=== PATIENT | female | born 1950 | race Caucasian/White ===

== ENCOUNTER 2017-02-07 11:29 | Day surgery (SDC) | payer MEDICARE, BC ==
[2017-02-02 12:12] VITALS: BMI 24.0
[~2017-02-07 11:29] MED LIST: DEXAMETHASONE SOD PHOSPHATE 10 MG/ML 1 ML VIAL IV ONE; DEXAMETHASONE SOD PHOSPHATE 4 MG/ML 1 ML VIAL IV ONE; FAMOTIDINE 20 MG/2 ML VIAL IV ONE; HYDROmorphone 1 MG/ML 1 ML SYRINGE IVP PRN; LACTATED RINGERS 1,000 ML IV SCH; MIDAZOLAM 2 MG/2 ML VIAL IV PRN; ONDANSETRON 4 MG/2 ML VIAL IVP ONE
[2017-02-07] MEDS: OXYMETAZOLINE 0.05% NASL SPRAY 15 ML NASAL ONE ×5 (12:40→13:00)
[2017-02-07] MEDS ORDERED: MIDAZOLAM 2 MG/2 ML VIAL ONE (13:17)
[2017-02-07] MEDS ORDERED: SUCCINYLCHOLINE CHLORIDE 100 MG/5 ML SYR IV ONE (13:17)
[2017-02-07] MEDS ORDERED: MEPERIDINE 50 MG/ML SYRINGE ONE (13:17)
[2017-02-07] MEDS ORDERED: HYDROmorphone (PF) 1 MG/ML ONE (13:17)
[2017-02-07] MEDS ORDERED: ETOMIDATE 2 MG/ML 10 ML VIAL ONE (13:17)
[2017-02-07] MEDS ORDERED: LIDOCAINE 1%-EPI 1:100,000 20 ML VIAL SQ ONE (13:39)
--- NOTE | 2017-02-07 14:13 | P.OP ---
Date of Procedure: 02/07/17 Preoperative Diagnosis: Chronic sinusitis Postoperative Diagnosis: Same Procedure(s) Performed: Bilateral endoscopic sinus surgery including bilateral maxillary antrostomy with removal of tissue from the right maxillary sinus, bilateral ethmoidectomy and balloon sinus plasty of the bilateral frontal sinuses Implants: Anesthesia: SHERRIA Surgeon: Colton Nye Estimated Blood Loss (ml): 10 Pathology: other (Sinus contents) Condition: stable Disposition: PACU Indications for Procedure: This is a 67-year-old white female with a remote history of sinus surgery 2002 and generally has done well until about the last 3 months where she is developed some headaches vertigo in the maxillary and frontal areas. She had a computed tomography scan in November of this year and again in December of this year showing some mucosal thickening the maxillary sinuses right. Left as well as a few ethmoid air cells below this did improve by the second CT. Operative Findings: Mucosal thickening in the maxillary and ethmoid sinuses. Frontal sinuses appeared unremarkable Description of Procedure: The patient was brought in the operative suite and placed in a supine position. The patient underwent induction of general anesthesia with oral endotracheal intubation without difficulty. The patient was prepped and draped in usual aseptic fashion with the orbits in the operating field for monitoring throughout the case. CT scan was on the computer screen for procedure also. 1 % lidocaine with 1-100,000 epinephrine was infused submucosally lateral nasal wall bilaterally as well as anterior tips of middle turbinates bilaterally. This was left to work for 7 minutes vasoconstrictive effect. Full 0 endoscopic examination is performed bilaterally. Being on the left the middle turbinate was medialized and good visualization of the maxillary and ethmoid sinuses was noted. The maxillary ostium was patent however was enlarged mildly anteriorly. Good visualization the maxillary sinus mucosa was noted and had only minimal thickening. There were a few residual posterior ethmoid air cells opened with minimal mucosal thickening. The balloon sinus plasty was performed on the left frontal sinus with the entellus light guided system. The sinus was then explored and appeared unremarkable. Attention was then turned to the right where the procedures were followed as they were on the left including medialization the middle turbinate, completion of ethmoidectomy, maxillary antrostomy. Note that the maxillary ostium on the right was patent but relatively smaller than the right have some increased mucosal thickening in the right maxillary sinus compared to the left. Again balloon sinus plasty was performed on the right frontal sinus with entellus light guided system and sinus explored as it was on the left. Once this completed xerogel nasal dressing was placed in the middle meatus bilaterally. The patient was suctioned in oral gastric fashion and was allowed to emerge from general anesthesia well and was extubated in the the operative suite and transferred to postop recovery area in satisfactory condition.
[2017-02-07 14:24] VITALS: TEMP 97.1
[2017-02-07 15:19] VITALS: RESP 16
[2017-02-07 15:43] VITALS: BP 143/76; PULSE 76
== END 2017-02-07 15:49 | disposition home or self-care (01) ==
LOC: OR 11:29
PROVIDERS: ATTEND Otolaryngology
DX: J32.2 Chronic ethmoidal sinusitis (principal); J32.0 Chronic maxillary sinusitis; J45.909 Unspecified asthma, uncomplicated; I10 Essential (primary) hypertension; M19.90 Unspecified osteoarthritis, unspecified site; E78.00 Pure hypercholesterolemia, unspecified; E03.9 Hypothyroidism, unspecified; Z79.2 Long term (current) use of antibiotics; Z79.891 Long term (current) use of opiate analgesic; Z79.52 Long term (current) use of systemic steroids; Z79.899 Other long term (current) drug therapy; Z88.1 Allergy status to other antibiotic agents; Z91.012 Allergy to eggs; Z91.011 Allergy to milk products; Z91.010 Allergy to peanuts; Z91.018 Allergy to other foods; Z91.09 Other allergy status, other than to drugs and biological substances; Z87.891 Personal history of nicotine dependence
CPT/HCPCS: 88305; 31267; 31296; 31255; C1726; J2250; J1100; J2175; J2405; J1170; J0330

== ENCOUNTER → 2017-04-03 | Outpatient (CLI) | payer MEDICARE, BC ==
--- NOTE | 2017-04-06 07:30 | MM ---
Reason for exam: screening (asymptomatic). Last mammogram was performed 1 year ago. History: Patient is postmenopausal and had first child at age 30. Benign left mammotome panel of the left breast, November 22, 2007. Cyst aspiration of the left breast. Took hormonal contraceptives for 6 years beginning at age 19. Took estrogen for 4 years beginning at age 52. Took progesterone for 4 years beginning at age 52. Physical Findings: A clinical breast exam by your physician is recommended on an annual basis and results should be correlated with mammographic findings. MG 3D Screening Mammo W/Cad Bilateral CC and MLO view(s) were taken. Prior study comparison: March 24, 2016, bilateral MG 3d screening mammo w/cad. The breast tissue is heterogeneously dense. This may lower the sensitivity of mammography. Previous mammotome biopsy within the left breast. No significant changes when compared with prior studies. ASSESSMENT: Benign, BI-RAD 2 RECOMMENDATION: Routine screening mammogram of both breasts in 1 year.
== END | disposition home or self-care (01) ==
LOC: RADMAMWWP 10:50
PROVIDERS: ATTEND Family Medicine
DX: Z12.31 Encounter for screening mammogram for malignant neoplasm of breast (principal)
CPT/HCPCS: 77063; G0202

== ENCOUNTER → 2018-04-26 | Outpatient (CLI) | payer MEDICARE, BC ==
--- NOTE | 2018-04-29 10:08 | MM ---
Reason for exam: screening (asymptomatic). Last mammogram was performed 1 year and 1 month ago. History: Patient is postmenopausal and had first child at age 30. Benign left mammotome panel of the left breast, November 22, 2007. Cyst aspiration of the left breast. Took hormonal contraceptives for 6 years beginning at age 19. Took estrogen for 4 years beginning at age 52. Took progesterone for 4 years beginning at age 52. Physical Findings: A clinical breast exam by your physician is recommended on an annual basis and results should be correlated with mammographic findings. MG 3D Screening Mammo W/Cad Bilateral CC and MLO view(s) were taken. Prior study comparison: April 03, 2017, bilateral MG 3d screening mammo w/cad. March 24, 2016, bilateral MG 3d screening mammo w/cad. The breast tissue is heterogeneously dense. This may lower the sensitivity of mammography. There is chronic nodularity bilaterally. There is no dominant lesion. No significant changes when compared with prior studies. ASSESSMENT: Benign, BI-RAD 2 RECOMMENDATION: Routine screening mammogram of both breasts in 1 year.
== END | disposition home or self-care (01) ==
LOC: RADMAMWWP 10:52
PROVIDERS: ATTEND Family Medicine
DX: Z12.31 Encounter for screening mammogram for malignant neoplasm of breast (principal)
CPT/HCPCS: 77063; 77067

== ENCOUNTER 2018-12-16 15:06 | Inpatient (IN) | payer MEDICARE, BC ==
[2018-12-16 15:26] LABS: Basophils % (A) 1 %; Eosinophils # (A) 0.1 k/uL (0-0.7); Eosinophils % (A) 2 %; HCT 40.8 % (34.0-46.0); HGB 13.7 gm/dL (11.4-16.0); Lymphocytes # (A) 2.5 k/uL (1.0-4.8); Lymphocytes % (A) 43 %; MCH 31.9 pg (25.0-35.0); MCHC 33.5 g/dL (31.0-37.0); Mean Platelet Volume 8.3; Monocytes # (A) 0.3 k/uL (0-1.0); Monocytes % (A) 5 %; Neutrophils # (A) 2.8 k/uL (1.3-7.7); Neutrophils % (A) 48 %; Platelet Count 193 k/uL (150-450); RDW 14.2 % (11.5-15.5); WBC 5.9 k/uL (3.8-10.6)
[2018-12-16] MEDS ORDERED: MORPHINE SULFATE 4 MG/ML SYRINGE IV PRN (15:28)
[2018-12-16] MEDS ORDERED: NALOXONE 0.4 MG/ML 1 ML VIAL IV PRN (15:28)
[2018-12-16] MEDS ORDERED: ACETAMINOPHEN TAB 325 MG TAB PO PRN (15:28)
--- NOTE | 2018-12-16 15:28 | ED ---
General Adult HPI - General Stated complaint: Chest Pain Time Seen by Provider: 12/16/18 15:07 Source: patient, EMS, RN notes reviewed, old records reviewed - History of Present Illness Initial comments: 68 -year-old female presented for evaluation chest pain. Patient was transferred from outside hospital with abnormal EKG and intermittent chest pain for the past 2 weeks. She was originally seen by her primary care physician who sent her to an outside emergency department. She was ultimately transferred to this institution for cardiology evaluation. Patient's has had intermittent chest pain left-sided and left neck and jaw pain for the past 2 weeks. She's had this both with exertion and at rest. She has no known history of coronary artery disease. She does have positive family history. She is a former smoker although this was many years ago. Nondiabetic. History of hypertension. Pain resolved at the time my evaluation. She was given aspirin, Lovenox, nitroglycerin prior to arrival. - Related Data Home Medications Medication Instructions Recorded Confirmed Hydrochlorothiazide [Hydrodiuril] 25 mg PO DAILY 05/10/15 02/07/17 Levocetirizine Dihydrochloride 5 mg PO DAILY 05/10/15 02/07/17 Levothyroxine Sodium [Synthroid] 75 mcg PO DAILY 05/10/15 02/07/17 Walker-3 Fatty Acids/Fish Oil [Fish 2 each PO DAILY 05/10/15 02/02/17 Oil 1,000 mg Softgel] Potassium Chloride [Klor-Con 20] 30 meq PO DAILY 05/10/15 02/07/17 Simvastatin [Zocor] 5 mg PO DAILY 05/10/15 02/07/17 Allergies Allergy/AdvReac Type Severity Reaction Status Date / Time egg Allergy sinus Verified 02/07/17 12:42 attack Milk Containing Products Allergy sinus Verified 02/07/17 12:42 [Dairy] attack peanut Allergy sinus Verified 02/07/17 12:42 attack Review of Systems ROS Statement: Those systems with pertinent positive or pertinent negative responses have been documented in the HPI. ROS Other: All systems not noted in ROS Statement are negative. Past Medical History Past Medical History: GERD/Reflux, Hyperlipidemia, Hypertension, Thyroid Disorder Additional Past Medical History / Comment(s): SEASONAL ALLERGIES History of Any Multi-Drug Resistant Organisms: None Reported Past Surgical History: Section, Tonsillectomy Additional Past Surgical History / Comment(s): abdominal laparoscopy. RHINOPLASTY. COLONOSCOPY X2 Past Anesthesia/Blood Transfusion Reactions: Previous Problems w/ Anesthesia Additional Past Anesthesia/Blood Transfusion Reaction / Comment(s): "takes time for me to come out of anesthesia" Smoking Status: Former smoker - Past Family History Father Family Medical History: Cancer General Exam General appearance: alert, in no apparent distress Head exam: Present: atraumatic, normocephalic Eye exam: Present: normal appearance, PERRL ENT exam: Present: normal exam Neck exam: Present: normal inspection. Absent: tenderness Respiratory exam: Present: normal lung sounds bilaterally. Absent: respiratory distress, wheezes Cardiovascular Exam: Present: regular rate, normal rhythm GI/Abdominal exam: Present: soft. Absent: distended, tenderness, guarding Extremities exam: Present: normal inspection Back exam: Present: normal inspection Neurological exam: Present: alert, oriented X3, CN II-XII intact. Absent: motor sensory deficit Psychiatric exam: Present: normal affect, normal mood Skin exam: Present: warm, dry, intact. Absent: cyanosis, diaphoretic EKG Findings - EKG Comments: EKG Findings:: EKG: Normal sinus rhythm T-wave inversion in V2, ST segment depression in lead [address] segment elevation rate of 60, DC interval 156, QRS duration 90, QTC 418 Medical Decision Making - Medical Decision Making 68 -year-old female presenting with intermittent chest pain. She was transferred for cardiology evaluation of unstable angina. Given aspirin and Lovenox as well as nitroglycerin prior to arrival. She is chest pain-free at the time my evaluation. EKG does show T-wave inversion in V2 as well as ST depression in lead 2. There is no ST segment elevation. EKG appears stable compared to EKGs obtained at outside hospital. All laboratory studies were repeated including troponin. She will be admitted for cardiology evaluation and serial enzymes. Case is discussed with the admitting physician Dr. Kowalski Disposition Clinical Impression: Unstable angina Disposition: ADMITTED IP TO THIS [facility] Condition: Stable Is patient prescribed a controlled substance at d/c from ED?: No Referrals: Aren Hidalgo MD [Primary Care Provider] - 1-2 days Decision to Admit Reason: Admit from EC Decision Date: 12/16/18 Decision Time: 15:28
[2018-12-16] MEDS ORDERED: NITROGLYCERIN SL TABS 0.4 MG TAB SUBLINGUAL PRN (15:29)
[2018-12-16 15:35] LABS: Partial Thromboplastin Time 27.3 sec (22.0-30.0); Prothrombin Time 10.6 sec (9.0-12.0)
[2018-12-16 15:50] LABS: ALT 18 U/L (9-52); AST 21 U/L (14-36); Albumin 4.2 g/dL (3.5-5.0); Alkaline Phosphatase 69 U/L (38-126); Anion Gap 7 mmol/L; Blood Urea Nitrogen 16 mg/dL (7-17); Calcium 9.4 mg/dL (8.4-10.2); Carbon Dioxide 27 mmol/L (22-30); Chloride 108 mmol/L (98-107); Glucose 87 mg/dL (74-99); Potassium 3.5 mmol/L (3.5-5.1); Sodium 142 mmol/L (137-145); Total Bilirubin 0.6 mg/dL (0.2-1.3)
[2018-12-16 17:35] VITALS: BMI 27.3
[2018-12-16] MEDS ORDERED: ASPIRIN 325 MG TAB PO SCH (20:15)
--- NOTE | 2018-12-16 21:56 | HP ---
HISTORY AND PHYSICAL DATE OF ADMISSION: 12/16/2018 DATE OF SERVICE: 12/16/2018. PRESENTING COMPLAINT: Chest pain. HISTORY OF PRESENTING COMPLAINT: This is a 68-year-old patient of Dr. Hidalgo. Chronic stable medical conditions include hypertension, hyperlipidemia, hypothyroid. For about 10 days, patient has been having lower sternal pressure, not really related to activity, present on and off different times. There was no radiation. No shortness of breath. No dizziness. No lightheadedness. Denies any major reflux symptoms. Denies any excessive muscular activity. The patient was transferred from outside facility for a cardiac workup. The patient is otherwise fairly active. REVIEW OF SYSTEMS: CONSTITUTIONAL: None. HEENT: None. RESPIRATORY: None. CARDIOVASCULAR: As above GASTROINTESTINAL: None. GENITOURINARY: None. MUSCULOSKELETAL: Some arthritic pain in the hand joints. DERMATOLOGICAL, HEMATOLOGIC, LYMPHATIC: none. PSYCHIATRY none. NEUROLOGICAL: None. PAST MEDICAL HISTORY: Hyperlipidemia, hypertension, hypothyroid, seasonal allergies. PAST SURGICAL HISTORY: , tonsillectomy, abdominal laparoscopy, rhinoplasty. SOCIAL HISTORY: The patient stopped smoking more than 40 years ago. . Alcohol none. FAMILY HISTORY: Of cancer, type unknown. HOME MEDICATIONS: 1. Zocor 5 mg p.o. daily. 2. Potassium 30 mEq p.o. daily. 3. Fish oil 1000 mg 2 tablets p.o. daily. 4. Synthroid 75 mcg p.o. daily. 5. Levocetirizine 5 mg p.o. daily. 6. Hydrochlorothiazide 25 mg p.o. daily. ALLERGIES: TO EGG, AZITHROMYCIN, MILK, PEANUT, TUSSIN. PHYSICAL EXAMINATION: VITAL SIGNS: Temperature 97.8, pulse 53, respirations 16, blood pressure 152/83, pulse ox 98% on room air. GENERAL APPEARANCE: Average built, lying in bed, awake. EYES: Pupils equal. Conjunctivae normal. HEENT: External appearance of nose and ears normal. Oral cavity normal. NECK: JVD not raised. Mass not palpable. RESPIRATORY: Effort normal. Lungs are clear. CARDIOVASCULAR: First and second sounds normal. No edema. ABDOMEN: Soft, nontender. Liver and spleen not palpable. LYMPHATIC: No lymph nodes palpable in the neck and axilla. PSYCHIATRY: Alert and oriented times three. Mood and affect normal. NEUROLOGICAL: Pupils equal. Cranial nerves grossly intact. Power and sensation grossly intact. INVESTIGATIONS: White count 5.9, hemoglobin 13.7, potassium 3.5, BUN 16, creatinine 0.71. Troponin less than 0.012. EKG tracing personally reviewed by me shows nonspecific T-wave changes. ASSESSMENT: 1. Anterior chest wall pain localized with some noncardiac features, but need to rule out underlying coronary artery disease due to cardiac risk factors include hypertension, hyperlipidemia, and patient's age. 2. Essential hypertension. 3. Hyperlipidemia. 4. Hypothyroidism. PLAN: Serial cardiac enzymes in place. Home medications are resumed. Cardiology was consulted. We will add aspirin. The patient probably needs a stress test. Care was discussed with the patient and her at the bedside. Copy to Dr. iHdalgo. MMDAYSI / JENNIEN: [id number] /
[2018-12-16 22:00] LABS: Creatine Kinase MB <0.2 ng/mL (0.0-2.4); Troponin I <0.012 ng/mL (0.000-0.034)
[2018-12-16] MEDS: NITROGLYCERIN OINT 1 INCH/GM PACKET TOPICAL SCH (23:32)
[2018-12-17 04:47] LABS: Creatine Kinase MB <0.2 ng/mL (0.0-2.4); Troponin I <0.012 ng/mL (0.000-0.034)
[2018-12-17] MEDS ORDERED: LEVOTHYROXINE 75 MCG TAB PO SCH (06:30)
--- NOTE | 2018-12-17 08:41 | P.CRDCN ---
History of Present Illness Consult date: 12/17/18 Requesting physician: Mac Kowalski Consult reason: chest pain Chief complaint: Chest pain History of present illness: This is a pleasant 68-year-old female with history of hypothyroidism, hypertension, hyperlipidemia, nonsmoker, nondiabetic, her mother had a myocardial infarction in her early 70s, she presented to [facility] with symptoms of. She describes her symptoms as a squeezing sensation in the chest, she denies any associated symptoms, discomfort lasts a few seconds and then dissipates. According to the patient, this has been going on for the past week and a half. An EKG was performed at [place] which showed some changes in the anterior leads and for this reason patient was transferred to come to [facility] for further evaluation and treatment. EKG performed at [place] showed a normal sinus rhythm with ST-T wave changes noted in the anterior leads. EKG performed on arrival here showed normal sinus rhythm with ST-T wave changes in leads V1 and V2. Blood pressure 128/80, heart rate in the 60s, 100% on room air. Blood pressure this morning 120/70 with a heart rate of 60, 96% on room air. White blood cell count 5.9, hemoglobin 13.7, platelet count 193. Sodium 142, potassium 3.5, BUN 16 and creatinine 0.7. Troponins negative 3. At the time of my examination this morning the patient is currently chest pain-free. Past Medical History Past Medical History: GERD/Reflux, Hyperlipidemia, Hypertension, Thyroid Disorder Additional Past Medical History / Comment(s): SEASONAL ALLERGIES History of Any Multi-Drug Resistant Organisms: None Reported Past Surgical History: Section, Tonsillectomy Additional Past Surgical History / Comment(s): abdominal laparoscopy. RHINOPLASTY. COLONOSCOPY X2 Past Anesthesia/Blood Transfusion Reactions: Previous Problems w/ Anesthesia Additional Past Anesthesia/Blood Transfusion Reaction / Comment(s): "takes time for me to come out of anesthesia" Past Psychological History: No Psychological Hx Reported Smoking Status: Former smoker Past Alcohol Use History: None Reported Additional Past Alcohol Use History / Comment(s): QUIT SMOKING OVER 40 YRS AGO Past Drug Use History: None Reported - Past Family History Father Family Medical History: Cancer Medications and Allergies Home Medications Medication Instructions Recorded Confirmed Type Hydrochlorothiazide [Hydrodiuril] 25 mg PO DAILY 05/10/15 12/16/18 History Levocetirizine Dihydrochloride 5 mg PO DAILY 05/10/15 12/16/18 History Levothyroxine Sodium [Synthroid] 75 mcg PO DAILY 05/10/15 12/16/18 History [place]-3 Fatty Acids/Fish Oil [Fish 2 each PO DAILY 05/10/15 12/16/18 History Oil 1,000 mg Softgel] Potassium Chloride [Klor-Con 20] 30 meq PO DAILY 05/10/15 12/16/18 History Simvastatin [Zocor] 5 mg PO DAILY 05/10/15 12/16/18 History Allergies Allergy/AdvReac Type Severity Reaction Status Date / Time egg Allergy sinus Verified 02/07/17 12:42 attack erythromycin base Allergy Unknown Verified 12/16/18 15:38 Milk Containing Products Allergy sinus Verified 02/07/17 12:42 [Dairy] attack peanut Allergy sinus Verified 02/07/17 12:42 attack tussin Allergy Unknown Uncoded 12/16/18 15:38 Physical Exam Vitals: Vital Signs Temp Pulse Pulse Resp BP BP Pulse Ox 12/17/18 04:00 98.0 F 60 16 121/73 96 12/17/18 00:00 98.5 F 62 16 135/72 96 12/16/18 20:00 97.5 F L 73 16 142/81 94 L 12/16/18 17:00 97.8 F 63 16 152/83 98 12/16/18 16:30 61 16 156/85 97 12/16/18 16:00 58 L 17 150/85 12/16/18 15:30 59 L 19 129/88 98 12/16/18 15:16 97.8 F 64 19 129/88 100 Intake and Output 12/16/18 12/17/18 12/17/18 22:59 06:59 14:59 Intake Total 444 240 Balance 444 240 Intake: Oral 444 240 Other: Voiding Method Toilet # Voids 2 Weight 74.48 kg 68.5 kg PHYSICAL EXAMINATION: GENERAL: 68-year-old female in no acute distress at the time of my exa mination HEENT: Head is atraumatic, normocephalic. Pupils equal, round. Sclera anicteric. Conjunctiva are clear. Mucous membranes of the mouth are moist. Neck is supple. There is no elevated jugular venous pressure. No carotid bruit is heard. HEART EXAMINATION: Heart S1, S2 normal. No murmur or gallop heard. CHEST EXAMINATION: Lungs are clear to auscultation and precussion. No chest wall tenderness is noted on palpation or with deep breathing. ABDOMEN: Soft, nontender. Bowel sounds are heard. No organomegaly noted. EXTREMITIES: 2+ peripheral pulses with no evidence of peripheral edema and no calf tenderness noted. NEUROLOGIC patient is awake, alert and oriented 3 . . Results 12/16/18 15:18 12/16/18 15:18 Cardiac Enzymes 12/16/18 12/16/18 12/16/18 Range/Units 15:18 15:18 21:32 AST 21 (14-36) U/L CK-MB (CK-2) <0.2 (0.0-2.4) ng/mL Troponin I <0.012 <0.012 (0.000-0.034) ng/mL 12/17/18 Range/Units 03:20 AST (14-36) U/L CK-MB (CK-2) <0.2 (0.0-2.4) ng/mL Troponin I <0.012 (0.000-0.034) ng/mL Coagulation 12/16/18 Range/Units 15:18 PT 10.6 (9.0-12.0) sec APTT 27.3 (22.0-30.0) sec CBC 12/16/18 Range/Units 15:18 WBC 5.9 (3.8-10.6) k/uL RBC 4.30 (3.80-5.40) m/uL Hgb 13.7 (11.4-16.0) gm/dL Hct 40.8 (34.0-46.0) % Plt Count 193 (150-450) k/uL Comprehensive Metabolic Panel 12/16/18 Range/Units 15:18 Sodium 142 (137-145) mmol/L Potassium 3.5 (3.5-5.1) mmol/L Chloride 108 H (98-107) mmol/L Carbon Dioxide 27 (22-30) mmol/L BUN 16 (7-17) mg/dL Creatinine 0.71 (0.52-1.04) mg/dL Glucose 87 (74-99) mg/dL Calcium 9.4 (8.4-10.2) mg/dL AST 21 (14-36) U/L ALT 18 (9-52) U/L Alkaline Phosphatase 69 (38-126) U/L Total Protein 7.0 (6.3-8.2) g/dL Albumin 4.2 (3.5-5.0) g/dL Current Medications Generic Name Dose Route Start Last Admin Trade Name Freq PRN Reason Stop Dose Admin Acetaminophen 650 mg 12/16/18 15:28 12/17/18 00:22 Tylenol Tab PO 650 mg Q6HR PRN Administration Mild Pain or Fever > 100.5 Aspirin 325 mg 12/16/18 20:15 12/16/18 21:19 Aspirin PO 325 mg DAILY [facility] Administration Atorvastatin Calcium 10 mg 12/17/18 09:00 Lipitor PO DAILY [facility] Hydrochlorothiazide 25 mg 12/17/18 09:00 Hydrodiuril PO DAILY [facility] Levothyroxine Sodium 75 mcg 12/17/18 06:30 12/17/18 06:16 Synthroid PO 75 mcg DAILY@0630 [facility] Administration Morphine Sulfate 4 mg 12/16/18 15:28 Morphine Sulfate (Inj) IV Q4HR PRN Severe Pain Naloxone HCl 0.2 mg 12/16/18 15:28 Narcan IV Q2M PRN Opioid Reversal Nitroglycerin 0.4 mg 12/16/18 15:29 Nitrostat SUBLINGUAL Q5M PRN Chest Pain Nitroglycerin 0.5 inch 12/17/18 00:00 12/16/18 23:32 Nitro-Bid Oint TOPICAL 0.5 inch Q8HR [facility] Administration Pantoprazole Sodium 40 mg 12/17/18 09:00 Protonix IV DAILY [facility] Intake and Output 12/16/18 12/17/18 12/17/18 22:59 06:59 14:59 Intake Total 444 240 Balance 444 240 Intake: Oral 444 240 Other: Voiding Method Toilet # Voids 2 Weight 74.48 kg 68.5 kg 12/16/18 15:18 12/16/18 15:18 EKG Interpretations (text) EKG shows a normal sinus rhythm with ST-T wave changes noted in the anterior leads. Mild ST depression in the inferior leads. Assessment and Plan Plan: Assessment and plan #1 chest discomfort with atypical features for acute coronary syndrome, troponins negative 3. EKG shows normal sinus rhythm with anterior ST-T wave changes and mild inferior ST depression #2 hypertension #3 hyperlipidemia #4 hypothyroidism Plan We will obtain an echocardiogram with Doppler study and repeat EKG this morning. Decrease aspirin to 81 mg daily. Obtain a fasting lipid profile. Patient has been advised today to undergo stress echocardiographic study, further recommendations will be based on those findings and the patient's clinical course. DNP note has been reviewed, I agree with a documented findings and plan of care. Patient was seen and examined.
[2018-12-17] MEDS: NITROGLYCERIN OINT 1 INCH/GM PACKET TOPICAL SCH (08:45)
[2018-12-17] MEDS ORDERED: ASPIRIN 81 MG PO SCH (09:00)
[2018-12-17] MEDS ORDERED: HYDROCHLOROTHIAZIDE 25 MG TAB PO SCH (09:00)
[2018-12-17] MEDS ORDERED: ATORVASTATIN 10 MG TAB PO SCH (09:00)
[2018-12-17] MEDS ORDERED: PANTOPRAZOLE 40 MG/10 ML VIAL IV SCH (09:00)
[2018-12-17 09:46] VITALS: TEMP 97.6
[2018-12-17 11:41] VITALS: BP 118/73; PULSE 73; RESP 16
--- NOTE | 2018-12-17 12:19 | ECHOF ---
Referral Reason:chest pain MEASUREMENTS -------- HEIGHT: 165.1 cm WEIGHT: 68.0 kg BP: 121/73 RVIDd: 2.7 cm (< 3.3) IVSd: 1.1 cm (0.6 - 1.1) LVIDd: 3.9 cm (3.9 - 5.3) LVPWd: 1.0 cm (0.6 - 1.1) IVSs: 1.6 cm LVIDs: 2.1 cm LVPWs: 1.8 cm LAESV Index (A-L): 15.37 ml/m Ao Diam: 2.3 cm (2.0 - 3.7) AV Cusp: 1.7 cm (1.5 - 2.6) LA Diam: 3.2 cm (2.7 - 3.8) MV EXCURSION: 13.666 mm (> 18.000) MV EF SLOPE: 99 mm/s (70 - 150) EPSS: 0.6 cm MV E Emir: 0.77 m/s MV DecT: 217 ms MV A Emir: 0.62 m/s MV E/A Ratio: 1.23 AR PHT: 556 ms RAP: 5.00 mmHg RVSP: 17.01 mmHg FINDINGS -------- Sinus rhythm. This was a technically good study. The left ventricular size is normal. Left ventricular wall thickness is normal. Overall left vent ricular systolic function is normal with, an EF between 55 - 60 %. The right ventricle is normal in size. Normal LA size by volume 22+/-6 ml/m2. The right atrial size is normal. Aortic valve is trileaflet and is mildly thickened. Trace amount of aortic regurgitation. The mitral valve leaflets are mildly thickened. There is trace mitral regurgitation. Trace tricuspid regurgitation present. There is no evidence of pulmonary hypertension. The right ventricular systolic pressure, as measured by Doppler, is 17.01mmHg. There is no pulmonic regurgitation present. The aortic root size is normal. Normal inferior vena cava with normal inspiratory collapse consistent with estimated right atrial pre ssure of 5 mmHg. There is no pericardial effusion. CONCLUSIONS -------- 1. Sinus rhythm. 2. This was a technically good study. 3. The left ventricular size is normal. 4. Left ventricular wall thickness is normal. 5. Overall left ventricular systolic function is normal with, an EF between 55 - 60 %. 6. The right ventricle is normal in size. 7. Normal LA size by volume 22+/-6 ml/m2. 8. The right atrial size is normal. 9. Aortic valve is trileaflet and is mildly thickened. 10. Trace amount of aortic regurgitation. 11. The mitral valve leaflets are mildly thickened. 12. There is trace mitral regurgitation. 13. Trace tricuspid regurgitation present. 14. There is no evidence of pulmonary hypertension. 15. The right ventricular systolic pressure, as measured by Doppler, is 17.01mmHg. 16. There is no pulmonic regurgitation present. 17. The aortic root size is normal. 18. Normal inferior vena cava with normal inspiratory collapse consistent with estimated right atrial pressure of 5 mmHg. 19. There is no pericardial effusion. APARTMENT HOUSE MANAGER: Whit Hoffman RDCS
--- NOTE | 2018-12-17 13:05 | ECHOS ---
STRESS ECHOCARDIOGRAM DATE OF SERVICE: 12/17/2018 INDICATIONS: Chest pain. MEDICATIONS: BASELINE HEART RATE: 70 BASELINE BLOOD PRESSURE: 126/85 MAXIMUM HEART RATE: 140 MAXIMUM BLOOD PRESSURE: 169/82 85% MPHR: 128 100% MPHR: 151 METS: 9 MAXIMUM STAGE REACHED: III TOTAL EXERCISE TIME: 8 minutes CLINICAL INFORMATION: Baseline EKG shows sinus rhythm, normal axis, normal intervals. Patient exercised on Broderick protocol for a total of 8 minutes achieving 9 METs, 92% of predicted maximal heart rate without chest pain or diagnostic ST-segment depression. Baseline echo shows normal left ventricular size, wall motion and systolic function. Postexercise, there is normal hyperdynamic response of all segments of myocardium noted. CONCLUSIONS: 1. Good exercise tolerance. 2. Negative stress test by EKG criteria. 3. Negative stress echo. MMODL / IJN: [id number] /
[2018-12-18] MEDS ORDERED: PANTOPRAZOLE 40 MG TABLET PO SCH (09:00)
--- NOTE | 2018-12-19 11:03 | DS ---
DISCHARGE SUMMARY DATE OF ADMISSION: 12/17/2018 DATE OF DISCHARGE: 12/18/2018 FINAL DIAGNOSES: 1. Anterior chest wall pain probably musculoskeletal. 2. Essential hypertension. 3. Hyperlipidemia. 4. Hypothyroidism. CONSULTATION: Dr. Gene Muse from Cardiology. HOSPITAL COURSE: This patient was transferred from an outside hospital for chest pain. Serial cardiac enzymes were negative. 2D echocardiogram showed preserved LV function. The patient did undergo stress echocardiogram. Cleared by Cardiology to go home. The patient's pain is felt to be musculoskeletal. This was discussed with the patient and . EXAMINATION: Temperature 97.6, pulse 73, respiratory rate 16, blood pressure 108/73. LUNGS: Clear. DISCHARGE MEDICATIONS: 1. Hydrochlorothiazide 25 mg a day. 2. Levocetirizine 5 mg p.o. daily. 3. Synthroid 75 mcg a day. 4. Fish oil. 5. Potassium 30 mEq a day. 6. Zocor 5 mg p.o. daily. FOLLOW UP: Dr. Hidalgo on December 19, 2018, follow up with Dr. Gene Muse on January 13, 2019. Copy to Dr. Hidalgo. MMZOËL / IJN: [id number] /
== END 2018-12-17 14:40 | disposition home or self-care (01) | DRG 313 ==
LOC: EC 15:06 → 3SCARD 15:28
PROVIDERS: ADMIT Hospitalist; ATTEND Hospitalist
DX: R07.89 Other chest pain (principal); I10 Essential (primary) hypertension; E78.5 Hyperlipidemia, unspecified; E03.9 Hypothyroidism, unspecified; K21.9 Gastro-esophageal reflux disease without esophagitis; Z87.891 Personal history of nicotine dependence; Z79.890 Hormone replacement therapy; Z79.899 Other long term (current) drug therapy; Z91.012 Allergy to eggs; Z91.011 Allergy to milk products; Z91.010 Allergy to peanuts; Z98.891 History of uterine scar from previous surgery; Z98.890 Other specified postprocedural states; Z88.1 Allergy status to other antibiotic agents; Z88.8 Allergy status to other drugs, medicaments and biological substances; Z82.49 Family history of ischemic heart disease and other diseases of the circulatory system; Z80.9 Family history of malignant neoplasm, unspecified
CPT/HCPCS: 36415; 80053; 82553; 84484; 85025; 85610; 85730; 93005; 93306; 93351; 99285

== ENCOUNTER → 2023-10-25 | Outpatient (CLI) | payer MEDICARE, BC ==
[2023-10-25 14:52] VITALS: BP 148/83; PULSE 64; RESP 15; TEMP 97.5
--- NOTE | 2023-10-25 14:53 | P.GSHP ---
History of Present Illness H&P Date: 10/25/23 Chief Complaint: breast pain Bianka is a 73 year old female seen in consultation for Hanny Barrios regarding breast pain. She had a bilateral mammogram on 02-27-23 which was BIRAD 2. She had a bilateral ultrasound done on 06-25-23 which did not show anything of concern. The patient is complaining of pain in her right breast in th lower outer aspect of the breast. The pain is intermittent. The patient is not complaining of any pain in the left breas tat this time. The pain is aching in nature. Prior to the pain starting she had been drinking Pepsi and/or coke but only 1 or 2 a week. She stopped that and that did correspond with the pain decreasing. She has not had any surgery on her breast. In the past she had a left breast cyst aspirated. She is not complaining of any nipple discharge or skin changes. She had a ? of a left breast core biopsy in the remote past which was benign. Complaining of any recent trauma or infection in the breast. Caffeine: Several pops per week which she is stopped but that did correspond to the decrease in the aching nature of the breast pain Nicotine: Negative Chocolate: Negative BCP: used them for about 10 years for endometirosis not used for over 40 years Family History: father: testicular cancer; at 94 of something else mother: skin cancer Hormonal History: menarche: 12 P3, age at first : 30, breast fed: yes menopause: 54 hormones: less than a year not even sure if she used them Surgical History: tonsil laproscoipic exam two rhinoplasties 2 C-sections Medical History: HTN hypothyroid high cholesterol Social History: nicotine: in her 20's for 4 years alcohol: occasional drugs: none - Constitutional Constitutional: Reports sweats - EENT Eyes: bilateral dry eye, denies blurred vision, denies pain Ears: right: tinnitus (more swishing than ringins in her right ear) Ears, nose, mouth and throat: Denies headache, Denies sore throat - Breasts Breasts: bilateral: as per HPI - Cardiovascular Cardiovascular: Denies chest pain, Denies shortness of breath - Respiratory Respiratory: Denies cough, Denies 7 - Gastrointestinal Gastrointestinal: Denies abdominal pain, Denies diarrhea, Denies nausea, Denies vomiting - Genitourinary (Female) Genitourinary: Denies dysuria, Denies hematuria - Menstruation Menstruation: Reports postmenopausal - Musculoskeletal Musculoskeletal: Denies myalgias - Integumentary Integumentary: Denies pruritus, Denies rash - Neurological Neurological: Denies numbness, Denies weakness - Psychiatric Psychiatric: Denies anxiety, Denies depression - Endocrine Endocrine: Denies fatigue, Denies weight change - Hematologic/Lymphatic Comment: none - Allergic/Immunologic Allergic/Immunologic: Reports seasonal allergies Past Medical History Past Medical History: GERD/Reflux, Hyperlipidemia, Hypertension, Thyroid Disorder Additional Past Medical History / Comment(s): SEASONAL ALLERGIES History of Any Multi-Drug Resistant Organisms: None Reported Past Surgical History: Section, Tonsillectomy Additional Past Surgical History / Comment(s): abdominal laparoscopy. RHINOPLASTY. COLONOSCOPY X2 Past Anesthesia/Blood Transfusion Reactions: Previous Problems w/ Anesthesia Additional Past Anesthesia/Blood Transfusion Reaction / Comment(s): "takes time for me to come out of anesthesia" Past Psychological History: No Psychological Hx Reported Past Alcohol Use History: None Reported Additional Past Alcohol Use History / Comment(s): QUIT SMOKING OVER 40 YRS AGO Past Drug Use History: None Reported - Past Family History Father Family Medical History: Cancer Medications and Allergies Home Medications Medication Instructions Recorded Confirmed Type Levocetirizine Dihydrochloride 5 mg PO DAILY 05/10/15 12/16/18 History Levothyroxine Sodium [Synthroid] 75 mcg PO DAILY 05/10/15 12/16/18 History [place]-3 Fatty Acids/Fish Oil [Fish 2 each PO DAILY 05/10/15 12/16/18 History Oil 1,000 mg Softgel] Potassium Chloride [Klor-Con 20] 30 meq PO DAILY 05/10/15 12/16/18 History Simvastatin [Zocor] 5 mg PO DAILY 05/10/15 12/16/18 History hydroCHLOROthiazide [Hydrodiuril] 25 mg PO DAILY 05/10/15 12/16/18 History Allergies Allergy/AdvReac Type Severity Reaction Status Date / Time egg Allergy sinus Verified 02/07/17 12:42 attack erythromycin base Allergy Unknown Verified 12/16/18 15:38 Milk Containing Products Allergy sinus Verified 02/07/17 12:42 (Dairy) attack [Dairy] peanut Allergy sinus Verified 02/07/17 12:42 attack tussin Allergy Unknown Uncoded 12/16/18 15:38 Surgical - Exam - General no distress - Eyes normal ocular movement - Neck trachea midline - Respiratory normal respiratory effort, clear to auscultation - Cardiovascular Rhythm: regular Heart Sounds: normal: S1, S2 - Abdomen Abdomen: soft, non tender, no guarding, no rigid, no rebound - Integumentary normal turgor - Neurologic no disoriented, no combative - Musculoskeletal normal gait - Psychiatric oriented to time, oriented to person, oriented to place, speech is normal, memory intact Breast Exam: BRA: 36D Inspection:bilateral grade 2 ptosis palpation: Right breast: Multi positional exam fibrocystic changes, in the 7 o'clock position there is some mild increased breast tissue this does not feel worrisome Right axilla: No adenopathy of concern Left breast: Multi positional exam fibrocystic changes no dominant masses or nodules of concern Left axilla: No adenopathy of concern Results Bilateral mammogram and ultrasound results reviewed Assessment and Plan Assessment: Impression: Mastodynia greatest right breast lateral aspect/slight increased breast tissue at the site Nothing radiographically or on physical exam to warrant interventional biopsy at this time We have discussed breast MRI and we will see if the insurance company will cover this Plan: Attempt to get bilateral breast MRI We have discussed lifestyle modification the patient has stopped her caffeine intake with some decreased intensity in the pain in the breast I have discussed with the patient and her the book solving the mastery of breast pain and given them the opportunity to order this if they would like to We will consider primrose oil Bilateral mammogram in February with repeat examination at that time CC: Hanny Barrios
== END ==
LOC: WWCWWP 12:46
PROVIDERS: ATTEND Surgery
DX: N64.4 Mastodynia (principal)

== ENCOUNTER → 2024-03-17 | Outpatient (CLI) | payer MEDICARE, BC ==
--- NOTE | 2024-04-01 12:58 | MM ---
Reason for Exam: Screening (asymptomatic). Last mammogram was performed 5 year(s) and 11 month(s) ago. Patient History: Menarche at age 11. First Full-Term at age 30. Late child-bearing (after 29). Postmenopausal. Estrogen for 4 years from age 52 until age 56. Progesterone for 4 years from age 52 until age 56. Hormonal Contraceptives, starting at age 19 for 6 years. Cyst Aspiration on the Left side. 11/22/2007, Benign Core Biopsy on the left side. Risk Values: Lety 5 year model risk: 2.9%. NCI Lifetime model risk: 6.2%. Prior Study Comparison: 03/24/2016 Bilateral Screening Mammogram, [facility]. 04/03/2017 Bilateral Screening Mammogram, [facility]. 04/26/2018 Bilateral Screening Mammogram, [facility]. Tissue Density: The breasts are heterogeneously dense, which may obscure small masses. Findings: Analyzed By CAD. There is no suspicious group of microcalcifications or new suspicious mass in either breast. Previous biopsy clip marker left breast. Benign-appearing punctate calcifications. Overall Assessment: Benign, BI-RAD 2 Management: Screening Mammogram of both breasts in 1 year. . Patient should continue monthly self-breast exams. A clinical breast exam by your physician is recommended on an annual basis. This exam should not preclude additional follow-up of suspicious palpable abnormalities. Note on Lety scores and lifetime risk: 1. A Lety score greater than 3% is considered moderate risk. If this is the case, consider specialist referral to assess eligibility for a risk reducing agent. 2. If overall lifetime risk for the development of breast cancer is 20% or higher, the patient may qualify for future screening with alternating mammogram and breast MRI. Electronically signed and approved by: Sabino Ayala M.D. Radiologis
== END | disposition home or self-care (01) ==
LOC: RADMAMWWP 14:11
PROVIDERS: ATTEND Surgery
DX: Z12.31 Encounter for screening mammogram for malignant neoplasm of breast (principal); R92.333 Mammographic heterogeneous density, bilateral breasts; Z78.0 Asymptomatic menopausal state
CPT/HCPCS: 77063; 77067

== ENCOUNTER → 2024-04-17 | Outpatient (CLI) | payer MEDICARE, BC ==
[2024-04-17 10:44] VITALS: BP 145/81; PULSE 76; RESP 17; TEMP 98
--- NOTE | 2024-04-17 11:04 | P.PN ---
Subjective Progress Note Date: 04/17/24 Principal diagnosis: breast pain 04-17-24 10/25/23 Chief Complaint: breast pain Bianka is a 73 year old female seen in consultation for Hanny Barrios regarding breast pain. She had a bilateral mammogram on 02-27-23 which was BIRAD 2. She had a bilateral ultrasound done on 06-25-23 which did not show anything of concern. The patient is complaining of pain in her right breast in th lower outer aspect of the breast. The pain is intermittent. The patient is not complaining of any pain in the left breas tat this time. The pain is aching in nature. Prior to the pain starting she had been drinking Pepsi and/or coke but only 1 or 2 a week. She stopped that and that did correspond with the pain decreasing. She has not had any surgery on her breast. In the past she had a left breast cyst aspirated. She is not complaining of any nipple discharge or skin changes. She had a ? of a left breast core biopsy in the remote past which was benign. Not Complaining of any recent trauma or infection in the breast. 04-17-24 bilateral mammogram on 03-17-24 BIRAD 2 personally reviewed and interpreted Of any new lumps masses or nodules of concern in either breast At this time she is not complaining of any pain in her breast. Has stopped caffeine beverages. Lety Risk: 5 year 2.9% declined chemoprophylaxis lifetime risk: 6.2% Caffeine: Several pops per week which she is stopped but that did correspond to the decrease in the aching nature of the breast pain/ 04-17-24 stopped caffienated bevwrages Nicotine: Negative Chocolate: Negative BCP: used them for about 10 years for endometriosis not used for over 40 years Family History: father: testicular cancer; at 94 of something else mother: skin cancer Hormonal History: menarche: 12 P3, age at first : 30, breast fed: yes menopause: 54 hormones: less than a year not even sure if she used them Surgical History: tonsil laproscoipic exam two rhinoplasties 2 C-sections Medical History: HTN hypothyroid high cholesterol being seen by rheumatologis to see if patient has rheumatoid arthritis Social History: nicotine: in her 20's for 4 years alcohol: occasional drugs: none - Constitutional Constitutional: Reports sweats - EENT Eyes: bilateral dry eye, denies blurred vision, denies pain Ears: right: tinnitus (more swishing than ringins in her right ear) Ears, nose, mouth and throat: Denies headache, Denies sore throat - Breasts Breasts: bilateral: as per HPI - Cardiovascular Cardiovascular: Denies chest pain, Denies shortness of breath - Respiratory Respiratory: Denies cough - Gastrointestinal Gastrointestinal: Denies abdominal pain, Denies diarrhea, Denies nausea, Denies vomiting - Genitourinary (Female) Genitourinary: Denies dysuria, Denies hematuria - Menstruation Menstruation: Reports postmenopausal - Musculoskeletal Musculoskeletal: Denies myalgias - Integumentary Integumentary: Denies pruritus, Denies rash - Neurological Neurological: Denies numbness, Denies weakness - Psychiatric Psychiatric: Denies anxiety, Denies depression - Endocrine Endocrine: Denies fatigue, Denies weight change - Hematologic/Lymphatic Comment: none - Allergic/Immunologic Allergic/Immunologic: Reports seasonal allergies Past Medical History Past Medical History: GERD/Reflux, Hyperlipidemia, Hypertension, Thyroid Disorder Additional Past Medical History / Comment(s): SEASONAL ALLERGIES History of Any Multi-Drug Resistant Organisms: None Reported Past Surgical History: Section, Tonsillectomy Additional Past Surgical History / Comment(s): abdominal laparoscopy. RHINOPLASTY. COLONOSCOPY X2 Past Anesthesia/Blood Transfusion Reactions: Previous Problems w/ Anesthesia Additional Past Anesthesia/Blood Transfusion Reaction / Comment(s): "takes time for me to come out of anesthesia" Past Psychological History: No Psychological Hx Reported Past Alcohol Use History: None Reported Additional Past Alcohol Use History / Comment(s): QUIT SMOKING OVER 40 YRS AGO Past Drug Use History: None Reported - Past Family History Father Family Medical History: Cancer Medications and Allergies Home Medications Medication Instructions Recorded Confirmed Type Levocetirizine Dihydrochloride 5 mg PO DAILY 05/10/15 12/16/18 History Levothyroxine Sodium [Synthroid] 75 mcg PO DAILY 05/10/15 12/16/18 History [place]-3 Fatty Acids/Fish Oil [Fish 2 each PO DAILY 05/10/15 12/16/18 History Oil 1,000 mg Softgel] Potassium Chloride [Klor-Con 20] 30 meq PO DAILY 05/10/15 12/16/18 History Simvastatin [Zocor] 5 mg PO DAILY 05/10/15 12/16/18 History hydroCHLOROthiazide [Hydrodiuril] 25 mg PO DAILY 05/10/15 12/16/18 History Allergies Allergy/AdvReac Type Severity Reaction Status Date / Time egg Allergy sinus Verified 02/07/17 12:42 attack erythromycin base Allergy Unknown Verified 12/16/18 15:38 Milk Containing Products Allergy sinus Verified 02/07/17 12:42 (Dairy) attack [Dairy] peanut Allergy sinus Verified 02/07/17 12:42 attack tussin Allergy Unknown Uncoded 12/16/18 15:38 Objective - Vital Signs Vital signs: Vital Signs Temp 98 F 04/17/24 10:42 Pulse 76 04/17/24 10:42 Resp 17 04/17/24 10:42 BP 145/81 04/17/24 10:42 Pulse Ox 96 04/17/24 10:42 FiO2 Intake & Output 04/16/24 04/17/24 04/17/24 18:59 06:59 18:59 Weight 70.76 kg - Constitutional General appearance: Present: cooperative - EENT Eyes: Present: EOMI ENT: Present: hearing grossly normal - Neck Neck: Present: normal ROM - Respiratory Respiratory: bilateral: CTA - Cardiovascular Rhythm: regular Heart sounds: normal: S1, S2 - Integumentary Integumentary: Present: normal turgor - Musculoskeletal Musculoskeletal: Present: gait normal - Psychiatric Psychiatric: Present: A&O x's 3, appropriate affect, intact judgment & insight - Additional findings Additional findings: Breast Exam: BRA: 36D Inspection:bilateral grade 2 ptosis palpation: Right breast: Multi positional exam fibrocystic changes, no dominant masses or nodules of concern Right axilla: No adenopathy of concern Left breast: Multi positional exam fibrocystic changes no dominant masses or nodules of concern Left axilla: No adenopathy of concern Assessment and Plan Assessment: Impression: Mastodynia greatest right breast lateral aspect/slight increased breast tissue at the site resolved Nothing radiographically or on physical exam to warrant interventional biopsy at this time Plan: At this time is not having breast pain. She is going to continue to avoid caffeinated beverages She did not have a breast MRI although we discussed that last time, and she did not use the primrose oil. At this time the pain has resolved. Bilateral mammogram in 1 year with examination at that time CC: Hanny Barrios
== END ==
LOC: WWCWWP 09:48
PROVIDERS: ATTEND Surgery
DX: R92.8 Other abnormal and inconclusive findings on diagnostic imaging of breast (principal); N64.4 Mastodynia; N60.02 Solitary cyst of left breast; Z87.891 Personal history of nicotine dependence; Z88.1 Allergy status to other antibiotic agents; Z91.010 Allergy to peanuts; Z91.011 Allergy to milk products; Z88.8 Allergy status to other drugs, medicaments and biological substances; Z91.012 Allergy to eggs